=== PATIENT | female | born 1980 | race Caucasian/White ===

== ENCOUNTER 2020-01-30 20:11 | Emergency (ER) | payer MEDICAID ==
[~2020-01-30] VITALS: Ht 154.9 cm; Wt 71.0 kg
[2020-01-30] MEDS ORDERED: LORAZEPAM 2MG/ML CPJ IV STA (20:36)
[2020-01-30 20:57] LABS: HEMATOCRIT. 40.4 % (36.0-48.0); HEMOGLOBIN. 13.9 g/dL (12.0-16.0); MEAN CORPUSCULAR HEMOGLOBIN 33.7 pg (28.0-32.0); MEAN CORPUSCULAR VOLUME 97.7 fL (81.0-99.0); PLATELET 370 x1000/uL (130-400); RED BLOOD CELL COUNT 4.14 mill/uL (4.2-5.4); RED CELL DISTRIBUTION WIDTH 12.1 % (11.6-14.6)
[2020-01-30 21:13] LABS: CHLORIDE 109 mEq/L (98-107); HCG SCREEN NEGATIVE
[2020-01-30 21:18] LABS: PLATELET ESTIMATE NORMAL
[2020-01-30 21:19] LABS: ETHANOL BLOOD < 10 mg/dL
[2020-01-30 21:39] LABS: CLARITY URINE CLEAR (CLEAR); COLOR URINE YELLOW (YELLOW); KETONES URINE NEGATIVE (NEGATIVE); LEUKOCYTE ESTERASE URINE NEGATIVE (NEGATIVE); NITRITE URINE NEGATIVE (NEGATIVE); OCCULT BLOOD URINE NEGATIVE (NEGATIVE); PROTEIN URINE NEGATIVE (NEGATIVE); SPECIFIC GRAVITY URINE 1.008 (1.005-1.030); UROBILINOGEN URINE 0.2 E.U./dL (0.2-1.0)
[2020-01-30 21:57] LABS: *AMPHETAMINES SCREEN URINE NEGATIVE (NEGATIVE); *BARBITURATES SCREEN URINE NEGATIVE (NEGATIVE)
[2020-01-30 21:58] LABS: *BENZODIAZEPINES SCREEN URINE NEGATIVE (NEGATIVE); *COCAINE SCREEN URINE NEGATIVE (NEGATIVE); METHADONE URINE SCREEN NEGATIVE (NEGATIVE); PHENCYCLIDINE URINE SCREEN NEGATIVE (NEGATIVE)
[2020-01-30 22:06] LABS: CANNABINOID URINE SCREEN PRESUMTIVE POSITIVE (NEGATIVE); OPIATES URINE SCREEN PRESUMTIVE POSITIVE (NEGATIVE)
[2020-01-31] MEDS ORDERED: ZIPRASIDONE HCL 40MG CAPSULE PO SCH (11:30)
[2020-01-31] MEDS ORDERED: LORAZEPAM 1MG TABLET PO ONE (11:30)
[2020-01-31] MEDS ORDERED: ZIPRASIDONE HCL 20MG CAPSULE PO SCH (12:00)
[2020-01-31 21:23] VITALS: BP 108/60
== END 2020-01-31 21:58 ==
LOC: ER 20:11
DX: Z03.818 Encounter for observation for suspected exposure to other biological agents ruled out (principal); R45.851 Suicidal ideations; F41.9 Anxiety disorder, unspecified; J45.909 Unspecified asthma, uncomplicated; F19.10 Other psychoactive substance abuse, uncomplicated; R00.0 Tachycardia, unspecified
CPT/HCPCS: 36415; 80053; 80305; 80307; 80320; 80329; 81003; 81025; 84703; 85025; 93005; 96374; 99285; C9803; J2060; U0003; G0480

== ENCOUNTER 2020-08-19 22:10 | Emergency (ER) | payer MEDICAID, OTHER ==
[~2020-08-19] VITALS: Ht 162.6 cm; Wt 68.0 kg
[2020-08-19] MEDS ORDERED: ACETAMINOPHEN 325MG TABLET PO STA (22:36)
[2020-08-19] MEDS ORDERED: SODIUM CHLORIDE 0.9% 1,000 ML IV ONE (22:45)
[2020-08-19] MEDS ORDERED: LORAZEPAM 2MG/ML CPJ IM STA (22:47)
[2020-08-19 22:57] LABS: CLARITY URINE CLOUDY (CLEAR); COLOR URINE YELLOW (YELLOW); KETONES URINE NEGATIVE (NEGATIVE); LEUKOCYTE ESTERASE URINE TRACE (NEGATIVE); NITRITE URINE NEGATIVE (NEGATIVE); OCCULT BLOOD URINE NEGATIVE (NEGATIVE); PH URINE 6.5 (4.5-8.0); PROTEIN URINE NEGATIVE (NEGATIVE); SPECIFIC GRAVITY URINE 1.008 (1.005-1.030); UROBILINOGEN URINE 0.2 E.U./dL (0.2-1.0)
[2020-08-19 23:16] LABS: *AMPHETAMINES SCREEN URINE NEGATIVE (NEGATIVE); *BARBITURATES SCREEN URINE NEGATIVE (NEGATIVE); *BENZODIAZEPINES SCREEN URINE NEGATIVE (NEGATIVE); *COCAINE SCREEN URINE NEGATIVE (NEGATIVE)
[2020-08-19 23:17] LABS: METHADONE URINE SCREEN NEGATIVE (NEGATIVE); OPIATES URINE SCREEN NEGATIVE (NEGATIVE); PHENCYCLIDINE URINE SCREEN NEGATIVE (NEGATIVE)
[2020-08-19 23:26] LABS: BASOPHILS % 0.7 % (0.0-2.0); HEMATOCRIT. 43.3 % (36.0-48.0); HEMOGLOBIN. 14.6 g/dL (12.0-16.0); LYMPHOCYTES % 16.6 % (20.0-50.0); MEAN CORPUSCULAR HEMOGLOBIN 33.2 pg (28.0-32.0); MEAN CORPUSCULAR VOLUME 98.2 fL (81.0-99.0); MEAN PLATELET VOLUME 7.8 fl (7.4-10.4); MONOCYTES % 5.8 % (2.0-8.0); NEUTROPHILS % 74.9 % (40.0-76.0); PLATELET 492 x1000/uL (130-400); RED BLOOD CELL COUNT 4.41 mill/uL (4.2-5.4); RED CELL DISTRIBUTION WIDTH 12.3 % (11.6-14.6)
[2020-08-19 23:27] LABS: CANNABINOID URINE SCREEN PRESUMTIVE POSITIVE (NEGATIVE)
[2020-08-19 23:32] LABS: CHLORIDE 105 mEq/L (98-107)
[2020-08-19 23:38] LABS: ETHANOL BLOOD < 10 mg/dL
[2020-08-19 23:51] LABS: HCG SCREEN NEGATIVE
[2020-08-20] MEDS ORDERED: HALOPERIDOL LACTATE 5MG/ML VIAL IM ONE (15:30)
[2020-08-20] MEDS ORDERED: LORAZEPAM 1MG TABLET PO ONE (15:45)
[2020-08-20] MEDS ORDERED: BUPROPION HCL 150MG SR TABLET PO SCH (15:45)
[2020-08-20] MEDS ORDERED: OLANZAPINE 5MG TABLET ODT PO ONE (15:45)
[2020-08-20] MEDS ORDERED: LITHIUM CARBONATE 150 MG CAPSULE PO NR (15:45)
[2020-08-20] MEDS ORDERED: LITHIUM CARBONATE 150 MG CAPSULE PO SCH (21:00)
[2020-08-20] MEDS: BUSPIRONE HCL 10MG TABLET PO SCH (21:00)
[2020-08-21] MEDS ORDERED: BUPROPION HCL 150MG SR TABLET PO SCH (09:00)
[2020-08-21] MEDS ORDERED: LITHIUM CARBONATE 150 MG CAPSULE PO SCH (09:00)
[2020-08-21] MEDS: BUSPIRONE HCL 10MG TABLET PO SCH (10:51)
[2020-08-21 13:13] VITALS: BP 123/66
== END 2020-08-21 13:35 ==
LOC: ER 22:10
DX: R45.851 Suicidal ideations (principal); R45.1 Restlessness and agitation; F33.3 Major depressive disorder, recurrent, severe with psychotic symptoms; Z20.822 Contact with and (suspected) exposure to COVID-19; F41.9 Anxiety disorder, unspecified; F12.90 Cannabis use, unspecified, uncomplicated; F15.10 Other stimulant abuse, uncomplicated; F16.10 Hallucinogen abuse, uncomplicated
CPT/HCPCS: 36415; 71045; 80053; 80305; 80307; 80320; 80329; 81003; 84443; 84703; 85025; 87635; 93005; 96372; 99285; C9803; J1630; J2060; J7030; G0480

== ENCOUNTER 2020-10-03 19:27 | Emergency (ER) | payer MEDICAID, OTHER ==
[~2020-10-03] VITALS: Ht 167.6 cm; Wt 77.0 kg
[2020-10-03] MEDS ORDERED: ACETAMINOPHEN 325MG TABLET PO ONE ×2 (20:00→21:15)
[2020-10-03] MEDS ORDERED: LORAZEPAM 1MG TABLET PO ONE (20:15)
[2020-10-03 20:26] LABS: CLARITY URINE CLEAR (CLEAR); COLOR URINE YELLOW (YELLOW); KETONES URINE NEGATIVE (NEGATIVE); LEUKOCYTE ESTERASE URINE NEGATIVE (NEGATIVE); NITRITE URINE NEGATIVE (NEGATIVE); OCCULT BLOOD URINE NEGATIVE (NEGATIVE); PH URINE 5.5 (4.5-8.0); PROTEIN URINE NEGATIVE (NEGATIVE); SPECIFIC GRAVITY URINE 1.012 (1.005-1.030); UROBILINOGEN URINE 0.2 E.U./dL (0.2-1.0)
[2020-10-03 20:38] LABS: *AMPHETAMINES SCREEN URINE NEGATIVE (NEGATIVE)
[2020-10-03 20:39] LABS: *BARBITURATES SCREEN URINE NEGATIVE (NEGATIVE); *BENZODIAZEPINES SCREEN URINE NEGATIVE (NEGATIVE); *COCAINE SCREEN URINE NEGATIVE (NEGATIVE); METHADONE URINE SCREEN NEGATIVE (NEGATIVE)
[2020-10-03 20:40] LABS: OPIATES URINE SCREEN NEGATIVE (NEGATIVE); PHENCYCLIDINE URINE SCREEN NEGATIVE (NEGATIVE)
[2020-10-03 20:44] LABS: CANNABINOID URINE SCREEN PRESUMTIVE POSITIVE (NEGATIVE)
[2020-10-03 21:00] LABS: BASOPHILS % 0.4 % (0.0-2.0); EOSINOPHILS % 2.2 % (0.0-5.0); HEMATOCRIT. 41.9 % (36.0-48.0); HEMOGLOBIN. 14.2 g/dL (12.0-16.0); LYMPHOCYTES % 14.4 % (20.0-50.0); MEAN CORPUSCULAR HEMOGLOBIN 33.7 pg (28.0-32.0); MEAN CORPUSCULAR VOLUME 99.7 fL (81.0-99.0); MEAN PLATELET VOLUME 7.8 fl (7.4-10.4); MONOCYTES % 7.3 % (2.0-8.0); NEUTROPHILS % 75.7 % (40.0-76.0); PLATELET 429 x1000/uL (130-400); RED CELL DISTRIBUTION WIDTH 12.3 % (11.6-14.6)
[2020-10-03 21:08] LABS: CHLORIDE 108 mEq/L (98-107)
[2020-10-03 21:13] LABS: ETHANOL BLOOD < 10 mg/dL
[2020-10-03] MEDS ORDERED: IBUPROFEN 800MG TABLET PO ONE (21:15)
[2020-10-03] MEDS ORDERED: BUPR300T52 MT (21:29)
[2020-10-03] MEDS ORDERED: LITHTAB MT (21:29)
[2020-10-03] MEDS ORDERED: FLOV11 INH (21:29)
[2020-10-04] MEDS ORDERED: LORAZEPAM 1MG TABLET PO ONE (02:45)
[2020-10-04] MEDS ORDERED: LORAZEPAM 1MG TABLET PO PRN (08:00)
[2020-10-04] MEDS ORDERED: QUETIAPINE FUMARATE 50MG TABLET PO SCH (09:00)
[2020-10-04 14:45] VITALS: BP 93/54
== END 2020-10-04 15:01 | disposition psychiatric hospital, planned readmission (93) ==
LOC: ER 19:27
DX: T14.91XA Suicide attempt, initial encounter (principal); F20.9 Schizophrenia, unspecified; M54.89 Other dorsalgia; M43.6 Torticollis; F16.10 Hallucinogen abuse, uncomplicated; F41.9 Anxiety disorder, unspecified; F31.9 Bipolar disorder, unspecified; F12.10 Cannabis abuse, uncomplicated; Z20.822 Contact with and (suspected) exposure to COVID-19; Z75.1 Person awaiting admission to adequate facility elsewhere; X83.8XXA Intentional self-harm by other specified means, initial encounter; Y93.89 Activity, other specified; Y92.230 Patient room in hospital as the place of occurrence of the external cause
CPT/HCPCS: 36415; 80053; 80305; 80307; 80320; 80329; 81003; 81025; 82962; 84443; 85025; 87426; 99285; Z7610; G0480